=== PATIENT | female | born 1955 | race Two or more races ===

== ENCOUNTER → 2016-06-26 | Outpatient (CLI) | payer OTHER, MEDICARE ==
--- NOTE | 2016-06-26 13:36 | KCIC ---
PROCEDURE Pelvic ultrasound. HISTORY Abnormal gynecologic exam. TECHNIQUE Transabdominal imaging was performed. Transvaginal imaging also was performed to better evaluate the adnexa. COMPARISON None available. FINDINGS There is a hyperechoic potentially solid mass in the right adnexa measuring 9.4 x 6.8 x 5.5 centimeters in size, may have some associated color flow. This appears separate from the right ovary. The uterus is not confidently visualized, unclear if this is separate from the uterus. In addition, there is a large cystic lesion with internal echoes and increased through transmission measuring up to 20 x 14 x 12 centimeters in size within the pelvis. This appears separate from the right ovary. The uterus is not confidently visualized. The left ovary is not confluent visualized. There is no free pelvic fluid. IMPRESSION 1. Potential solid mass in the right adnexa measuring up to 9.4 centimeters in size, unclear if this arises from the uterus. Recommend pelvic MRI with and without contrast for further evaluation. 2. Complex cystic lesion in the pelvis up to 20 centimeters in size, not clear from what structure this originates. This can also be further evaluated by MRI. If the patient cannot undergo MRI, CT with IV and oral contrast can be considered. Cystic malignancy is not excluded. Hydrometrocolpos with thinned myometrium is an additional consideration given nonvisualized uterus and report of abnormal gynecologic exam. Electronically signed by: Toni Marley MD (Jun 26, 2016 13:33:13)
== END | disposition home or self-care (01) ==
LOC: KCIC US 10:40
PROVIDERS: ATTEND Family Medicine
DX: D25.9 Leiomyoma of uterus, unspecified (principal)
CPT/HCPCS: 76830; 76856

== ENCOUNTER → 2016-07-06 | Outpatient (CLI) | payer OTHER, MEDICARE ==
[~2016-07-06] MED LIST: ATOR20TA58 PO; DAPA10TA PO; FLUT10SP NS; GADOBUTROL 10 MMOL/10 ML VIAL IV ONE; LOSA50TA6 PO
--- NOTE | 2016-07-06 13:49 | KCIC ---
PROCEDURE MRI of the pelvis with and without contrast. HISTORY Pelvic mass on prior studies. TECHNIQUE MRI of the pelvis was performed before and after the intravenous administration of 9 milliliters Gadavist. COMPARISON 06/26/2016. FINDINGS There is a cystic mass occupying the majority of the true pelvis extending superiorly to the umbilicus. It measures 18.4 x 14.5 x 12.9 centimeters. No solid composed is identified. Small follicles may be compressed along its periphery. No clear internal enhancement is seen. It likely arises from the left ovary which is not otherwise identified. The uterus is displaced into the right aspect of the false pelvis. A contains multiple solid heterogeneous masses consistent with fibroids. The largest 7.1 x 6.1 centimeters. Others measure up to 2.9 centimeters. The endometrial stripe is distorted but not clearly thickened. The right ovary is in the right hemipelvis. A contains multiple follicles. The largest measures 3.0 x 1.9 centimeters. There is a small amount of free pelvic fluid. No enlarged lymph nodes are seen. The bladder is compressed. There is degeneration of the superior acetabular labrums. There multiple small paralabral cysts that measure up to 5 millimeters. Degenerative disc disease is mild to moderate at L5-S1. There is an anterior central extrusion at L5-S1 measuring 4 millimeters. IMPRESSION - 18 centimeter cystic mass in the pelvis, likely arising from the left ovary. There is no clear solid component, but an ovarian neoplasm is the primary concern in this demographic. Ongoing gynecologic management is recommended. - The uterus is displaced superiorly and to the right. A contained multiple fibroids that measure up to 7 centimeters. - Right ovarian follicles measure up to 3 centimeters. This can also be followed sonographically to resolution. - Moderate inferior disc extrusion at L5-S1. - Bilateral degenerative acetabular labral tears with multiple small paralabral cysts. Electronically signed by: Chet Paul (Jul 06, 2016 13:48:13)
== END | disposition home or self-care (01) ==
LOC: KCIC MRI 10:45
PROVIDERS: ATTEND Family Medicine
DX: D25.9 Leiomyoma of uterus, unspecified (principal); N83.9 Noninflammatory disorder of ovary, fallopian tube and broad ligament, unspecified
CPT/HCPCS: 72197; 82565; A9585

== ENCOUNTER → 2016-07-26 | Outpatient (CLI) | payer MEDICARE, OTHER ==
[~2016-07-26] MED LIST changes: -GADOBUTROL 10 MMOL/10 ML VIAL IV ONE
--- NOTE | 2016-07-26 12:24 | KCIC ---
PROCEDURE Two-view chest. HISTORY Preoperative. Abnormal EKG. COMPARISON No comparison. FINDINGS Mildly tortuous thoracic aorta. Cardiac size normal. Lungs are clear. No pleural effusion or pneumothorax. No acute bone abnormality. IMPRESSION No acute cardiopulmonary process. Electronically signed by: Lance Camarena MD (Jul 26, 2016 12:23:17)
== END | disposition home or self-care (01) ==
LOC: KCIC 11:01
PROVIDERS: ATTEND Family Medicine
DX: Z01.811 Encounter for preprocedural respiratory examination (principal); R94.31 Abnormal electrocardiogram [ECG] [EKG]; I71.2 Thoracic aortic aneurysm, without rupture
CPT/HCPCS: 71020

== ENCOUNTER → 2016-07-27 | Outpatient (CLI) | payer MEDICARE, OTHER ==
[~2016-07-27] MED LIST changes: +REGADENOSON 0.4 MG/5 ML DISP.SYRIN. IV ONE
--- NOTE | 2016-07-27 11:05 | RAD ---
APPROVED REPORT Test Type: Pharmacological Stress Nurse/Tech: Samira Shelley R.N. Test Indications: pre-op Cardiac History: htn,smoker Medications: See Electronic Medical Record Medical History: See Electronic Medical Record Resting ECG: SR Resting Heart Rate: 78 bpm Resting Blood Pressure: 153/76mmHg Pretest Chest Pain: No chest pain Nurse/Tech Notes S1S2, lungs CTA Consent: The procedure was explained to the patient in lay terms. Informed consent was witnessed. Inck eout was entered into [facility]. History and Stress Test performed by DAQUAN Kimbrough, JASIEL (R) (N) Pharm. Details Pharmacologic stress testing was performed using 0.4mg per 5ml of regadenoson given intravenously ove r 7-10 seconds. Stress Symptoms Nausea which ended before the end of recovery period POST EXERCISE Reason for Termination: Infusion complete Max HR: 100 bpm Max Blood Pressure: 164/59mmHg Blood Pressure response to exercise: Normal blood pressure response during stress. Heart Rate response to exercise: wnl Chest Pain: No. Arrhythmia: No. ST Change: No. INTERPRETATION Stress EKG Conclusion: Baseline EKG showed sinus rhythm. No ischemic changes at peak stress. No arr hythmias. Imaging Protocol IMAGE PROTOCOL: Rest Tc-99m/stress Tc-99m 1 day Rest: Stress: Viability: Radiopharm.Tc99m [id number] Sestamibi Dose10.1mCi 34.9mCi Duration 15min. 10min. Img Date 07/27/2016 07/27/2016 Inj-Img Umls58otg. 60min. Rest Admin Site:IV - Left ForearmAdministrator:MARTA Bach Stress Admin Site: IV - Left ForearmAdministrator: DAQUAN Kimbrough, JASIEL (R)(N) STRESS DATA End Diast. Vol.81.0mlAv. Heart Rate87.0bpm End Syst. Vol.9.0mlCO Index BSA0.0L/min Myocardial Snmf330.0gEject. Fotpscgd05.0% Stress Rates Pk. Fill Rate2.52EDV/secLVtime Pk. Fill 167.89msec Pk. Empty Rate4.63ESV/secLVtime Pk. Fvmmm978.80msec 1/3 Pk. Fill1.38EDV/sec Stress Scores Regional WT0.00Summed WT0.00 Regional WM0.00Summed WM0.00 Study quality was good. Left Ventricular size was Normal at Rest and Stress. Lung uptake was Normal. Left Ventricular ejection fraction is 89%. The rest and stress images show normal perfusion, normal contraction and thickening. LV Perf. Quant 17 Seg. SSS0.00 17 Seg. SRS0.00 17 Seg. SDS0.00 Stress Defect Extent (% LAD)0.00Rest Defect Extent (% LAD)0.00Rev. Defect Extent (% LAD)0.00 Stress Defect Extent (% LCX) 0.00Rest Defect Extent (% LCX)0.00Rev. Defect Extent (% LCX)0.00 Stress Defect Extent (% RCA)0.00Rest Defect Extent (% RCA)0.00Rev. Defect Extent (% RCA)0.00 Stress Defect Extent (% SHARRON)0.00Rest Defect Extent (% SHARRON)0.00Rev. Defect Extent (% SHARRON)0.00 Conclusion 1. Regadenoson cardioisotope stress test did not show any evidence of ischemia or infarct. 2. Normal left ventricular systolic function with ejection fraction calculated at 89%. 3. Low risk for cardiac events.
== END | disposition home or self-care (01) ==
LOC: NM 06:42
PROVIDERS: ATTEND Internal Medicine Cardiovascular Disease
DX: Z01.818 Encounter for other preprocedural examination (principal); I10 Essential (primary) hypertension; F17.200 Nicotine dependence, unspecified, uncomplicated
CPT/HCPCS: 78452; 93017; 96374; 96375; 96376; A9500; J2785

== ENCOUNTER → 2018-04-16 | Outpatient (CLI) | payer MEDICARE, OTHER ==
[~2018-04-16] MED LIST changes: -LOSA50TA6 PO; +LOSA50TA7 PO; -REGADENOSON 0.4 MG/5 ML DISP.SYRIN. IV ONE
--- NOTE | 2018-04-16 16:10 | RAD ---
DATE: 04/16/2018 EXAM: MAMMO ANAYELI SCREENING BILATERAL HISTORY: Routine screening COMPARISON: Prior exams are performed more than 15 years ago and are not available. This study was interpreted with the benefit of Computerized Aided Detection (CAD). Breast Density: SCATTERED The breast parenchyma shows scattered fibroglandular densities. Breast parenchyma level B. FINDINGS: Benign calcifications present. No suspicious calcification cluster or distortion. No mass lesions. IMPRESSION: Normal BI-RADS CATEGORY: 2 BENIGN FINDING(S) RECOMMENDED FOLLOW-UP: 12M 12 MONTH FOLLOW-UP PQRS compliance statement: Patient information was entered into a reminder system with a target due date in one year for the next mammogram. Mammography is a sensitive method for finding small breast cancers, but it does not detect them all and is not a substitute for careful clinical examination. A negative mammogram does not negate a clinically suspicious finding and should not result in delay in biopsying a clinically suspicious abnormality. "Our facility is accredited by the [employer] Mammography Program."
== END | disposition home or self-care (01) ==
LOC: MAMMO 13:34
PROVIDERS: ATTEND Family Medicine
DX: Z12.31 Encounter for screening mammogram for malignant neoplasm of breast (principal)
CPT/HCPCS: 77063; 77067

== ENCOUNTER → 2018-07-30 | Outpatient (CLI) | payer MEDICARE, OTHER ==
[~2018-07-30] MED LIST changes: +LOSA-73 PO; -LOSA50TA7 PO
--- NOTE | 2018-07-31 09:46 | SLEEP ---
DATE OF STUDY: 07/30/2018 ATTENDING PHYSICIAN: Dr. Shimon Dela Cruz. The patient is a 63-year-old who weighs 198 pounds with a BMI of 34. The patient's Lawrence score was 10. The patient underwent diagnostic sleep study at [facility]. During the night study, the patient spent 424 minutes in bed and slept for 253 minutes with a sleep efficiency of 60%. Sleep latency was 100 minutes with a REM latency of 293 minutes. Overall sleep architecture showed normal stage 1 and stage 2 sleep, increased slow wave sleep and reduced REM sleep. During the night study, the patient had 1 obstructive apnea, 1 mixed apnea and 3 central apneas and 33 hypopneas. The patient's apnea-hypopnea index was 9 per hour, supine index 12 per hour and REM index of 9 per hour. EKG monitoring revealed a mean heart rate of 83 beats per minute, no sustained arrhythmias were observed. Nocturnal oximetry study revealed an average oxygen saturation of 98% with the lowest of 90%. PLMS were seen at index of 97 per hour and 12 per hour caused EEG arousals. Due to low AHI, the patient did not meet the split night criteria for CPAP initiation. IMPRESSION: 1. Mild sleep apnea-hypopnea syndrome at an apnea-hypopnea index of 9 per hour. 2. No clinically significant nocturnal hypoxia. 3. Severe periodic limb movements of sleep. RECOMMENDATIONS: 1. The patient is clinically symptomatic with an Lawrence score of 10. I would recommend treating the patient's sleep apnea with either oral appliance or a trial of CPAP titration. 2. Weight loss is strongly advised. This will certainly help improving the patient's sleep apnea. 3. Avoid TELEVISION ANALYZER depressants. 4. PLMS can be treated with dopaminergic agonist agents if the patient is clinically symptomatic. The patient should also be further evaluated for symptoms of restless legs during the day. OMA BROTHERS MD DR: GURINDER/liza JOB#: [id number] / [id number] SHIMON Carlton MD
== END | disposition home or self-care (01) ==
LOC: SLPLAB 19:12
PROVIDERS: ATTEND Family Medicine
DX: G47.33 Obstructive sleep apnea (adult) (pediatric) (principal); G47.61 Periodic limb movement disorder
CPT/HCPCS: 95810

== ENCOUNTER → 2018-09-01 | Outpatient (CLI) | payer MEDICARE, OTHER ==
[~2018-09-01] MED LIST changes: +OXYMETAZOLINE 0.05% NASAL SPRAY 30ML BOTTLE. NS ONE
--- NOTE | 2018-09-02 14:51 | SLEEP ---
DATE OF STUDY: 09/01/2018 SLEEP STUDY ATTENDING PHYSICIAN: Shimon Dela Cruz MD. The patient is a 63 years old who weighs 198 pounds with a BMI of 34. The patient's [place]on score was 10. The patient had previous sleep study and was found to have mild SUSAN at an AHI of 9 per hour. The patient was clinically symptomatic with an [place] score of 10. As a result, the patient was referred back for treatment of sleep apnea and performed at [facility]. During the night study, the patient spent 415 minutes in bed and slept for 282 minutes with a sleep efficiency of 68%. Sleep latency was 113 minutes with a REM latency of 167 minutes. Overall, sleep architecture showed normal stage 1 sleep, increased stage 2 sleep, increased N3 sleep and reduced REM sleep. EKG monitoring revealed normal sinus rhythm, average heart rate 69 beats per minute, no sustained arrhythmias observed. PLMS were seen at index of 22 per hour and 6 per hour caused EEG arousals. The patient was started on CPAP at 5 cm water and titrated up to 7 cm water. At the final pressure, the patient slept for 270 minutes. The patient had supine sleep as well as REM sleep. The patient's AHI was reduced to 1 per hour and oxygen saturation remained above 88%. The patient used small size nasal cushion. IMPRESSION: 1. Sleep apnea diagnosed by previous sleep study. 2. Moderate PLMS at an index of 22 per hour and 6 per hour caused EEG arousals. RECOMMENDATIONS: 1. CPAP at 7 cm water completely eliminated the patient's sleep apnea, should be used on a nightly basis. 2. Follow up in 4-6 weeks to assess compliance and to document clinical improvement with CPAP. 3. Weight loss is advised. 4. Avoid DRUM SAW OPERATOR depressants. 5. Caution regarding driving until symptoms of sleep apnea resolve with the use of CPAP. 6. PLMS does not need to be treated unless the patient has symptoms of restless legs during the day. OMA BROTHERS MD DR: GURINDER/liza JOB#: [id number] / [id number] SHIMON Carlton MD
== END | disposition home or self-care (01) ==
LOC: RT 09:54
PROVIDERS: ATTEND Family Medicine
DX: G47.33 Obstructive sleep apnea (adult) (pediatric) (principal); G47.61 Periodic limb movement disorder
CPT/HCPCS: 95811

== ENCOUNTER → 2020-12-08 | Outpatient (CLI) | payer MEDICARE, OTHER ==
[~2020-12-08] MED LIST changes: -OXYMETAZOLINE 0.05% NASAL SPRAY 30ML BOTTLE. NS ONE
[2020-12-08 10:35] LABS: BASO # 0.1 x10^3/uL (0.0-0.2); BASO % 1 % (0-3); EOS # 0.3 x10^3/uL (0.0-0.7); EOS % 2 % (0-3); HEMATOCRIT 45.3 % (36.0-47.0); HEMOGLOBIN 14.9 g/dL (12.0-15.5); LYMPH # 1.8 x10^3/uL (1.0-4.8); LYMPH % 14 % (24-48); MEAN CORPUSCULAR HEMOGLOBIN 27 pg (25-35); MEAN CORPUSCULAR HGB CONC 33 g/dL (31-37); MEAN CORPUSCULAR VOLUME 82 fL (79-100); MONO # 0.8 x10^3/uL (0.0-1.1); MONO % 6 % (0-9); NEUT # 10.1 x10^3/uL (1.8-7.7); NEUT % 78 % (31-73); PLATELET COUNT 807 x10^3/uL (140-400); RED BLOOD COUNT 5.54 x10^6/uL (3.50-5.40); RED CELL DISTRIBUTION WIDTH 15.1 % (11.5-14.5)
[2020-12-08 11:16] LABS: CALCIUM 9.7 mg/dL (8.5-10.1); CREATININE 0.6 mg/dL (0.6-1.0); GFR 100.6; POTASSIUM 4.1 mmol/L (3.5-5.1)
[2020-12-08 11:33] LABS: ALBUMIN 4.6 g/dL (3.4-5.0); ALBUMIN/GLOBULIN RATIO 1.2 (1.0-1.7); TOTAL BILIRUBIN 0.4 mg/dL (0.2-1.0); TOTAL PROTEIN 8.3 g/dL (6.4-8.2)
== END ==
LOC: ONCLAB 10:03
PROVIDERS: ATTEND Physician Assistant
DX: D47.3 Essential (hemorrhagic) thrombocythemia (principal)
CPT/HCPCS: 36415; 80053; 82607; 82668; 82728; 82746; 83540; 83550; 85025

== ENCOUNTER → 2020-12-30 | Outpatient (CLI) | payer MEDICARE, OTHER ==
[2020-12-30 09:42] LABS: BASO # 0.2 x10^3/uL (0.0-0.2); BASO % 1 % (0-3); EOS # 0.3 x10^3/uL (0.0-0.7); EOS % 2 % (0-3); HEMATOCRIT 42.6 % (36.0-47.0); HEMOGLOBIN 14.1 g/dL (12.0-15.5); LYMPH # 2.1 x10^3/uL (1.0-4.8); LYMPH % 15 % (24-48); MEAN CORPUSCULAR HEMOGLOBIN 27 pg (25-35); MEAN CORPUSCULAR HGB CONC 33 g/dL (31-37); MEAN CORPUSCULAR VOLUME 82 fL (79-100); MONO % 7 % (0-9); NEUT # 10.3 x10^3/uL (1.8-7.7); NEUT % 75 % (31-73); PLATELET COUNT 744 x10^3/uL (140-400); RED BLOOD COUNT 5.19 x10^6/uL (3.50-5.40); RED CELL DISTRIBUTION WIDTH 15.1 % (11.5-14.5); WHITE BLOOD COUNT 13.8 x10^3/uL (4.0-11.0)
[2020-12-30 09:52] LABS: CALCIUM 9.3 mg/dL (8.5-10.1); CREATININE 0.6 mg/dL (0.6-1.0); GFR 100.6; POTASSIUM 3.9 mmol/L (3.5-5.1)
[2020-12-30 09:57] LABS: ALBUMIN 3.9 g/dL (3.4-5.0); TOTAL BILIRUBIN 0.4 mg/dL (0.2-1.0); TOTAL PROTEIN 7.9 g/dL (6.4-8.2)
== END ==
LOC: ONCLAB 09:22
PROVIDERS: ATTEND Internal Medicine Hematology & Oncology
DX: D47.3 Essential (hemorrhagic) thrombocythemia (principal)
CPT/HCPCS: 36415; 80053; 85025

== ENCOUNTER → 2021-01-13 | Outpatient (CLI) | payer MEDICARE, OTHER ==
[2021-01-13 15:08] LABS: BASO # 0.1 x10^3/uL (0.0-0.2); BASO % 1 % (0-3); EOS # 0.3 x10^3/uL (0.0-0.7); EOS % 2 % (0-3); HEMATOCRIT 40.9 % (36.0-47.0); HEMOGLOBIN 13.7 g/dL (12.0-15.5); LYMPH # 2.1 x10^3/uL (1.0-4.8); LYMPH % 17 % (24-48); MEAN CORPUSCULAR HEMOGLOBIN 27 pg (25-35); MEAN CORPUSCULAR HGB CONC 33 g/dL (31-37); MEAN CORPUSCULAR VOLUME 82 fL (79-100); MONO # 0.7 x10^3/uL (0.0-1.1); MONO % 6 % (0-9); NEUT % 74 % (31-73); PLATELET COUNT 620 x10^3/uL (140-400); RED BLOOD COUNT 4.98 x10^6/uL (3.50-5.40); RED CELL DISTRIBUTION WIDTH 15.5 % (11.5-14.5); WHITE BLOOD COUNT 12.2 x10^3/uL (4.0-11.0)
[2021-01-13 15:22] LABS: CALCIUM 9.4 mg/dL (8.5-10.1); CREATININE 0.7 mg/dL (0.6-1.0); GFR 84.2; POTASSIUM 3.8 mmol/L (3.5-5.1)
[2021-01-13 15:40] LABS: ALBUMIN 3.7 g/dL (3.4-5.0); TOTAL BILIRUBIN 0.4 mg/dL (0.2-1.0); TOTAL PROTEIN 7.5 g/dL (6.4-8.2)
== END ==
LOC: ONCLAB 14:02
PROVIDERS: ATTEND Physician Assistant
DX: D47.3 Essential (hemorrhagic) thrombocythemia (principal)
CPT/HCPCS: 36415; 80053; 82607; 82668; 82728; 82746; 83540; 83550; 85025

== ENCOUNTER → 2021-02-10 | Outpatient (CLI) | payer MEDICARE, OTHER ==
[2021-02-10 10:08] LABS: BASO # 0.1 x10^3/uL (0.0-0.2); BASO % 1 % (0-3); EOS # 0.2 x10^3/uL (0.0-0.7); EOS % 1 % (0-3); HEMATOCRIT 40.3 % (36.0-47.0); HEMOGLOBIN 13.4 g/dL (12.0-15.5); LYMPH # 1.8 x10^3/uL (1.0-4.8); LYMPH % 16 % (24-48); MEAN CORPUSCULAR HEMOGLOBIN 28 pg (25-35); MEAN CORPUSCULAR HGB CONC 33 g/dL (31-37); MEAN CORPUSCULAR VOLUME 84 fL (79-100); MONO # 0.8 x10^3/uL (0.0-1.1); MONO % 7 % (0-9); NEUT # 8.7 x10^3/uL (1.8-7.7); NEUT % 75 % (31-73); PLATELET COUNT 597 x10^3/uL (140-400); RED BLOOD COUNT 4.82 x10^6/uL (3.50-5.40); RED CELL DISTRIBUTION WIDTH 16.7 % (11.5-14.5); WHITE BLOOD COUNT 11.7 x10^3/uL (4.0-11.0)
[2021-02-10 10:19] LABS: CALCIUM 9.4 mg/dL (8.5-10.1); CREATININE 0.6 mg/dL (0.6-1.0); GFR 100.6; POTASSIUM 4.2 mmol/L (3.5-5.1)
== END ==
LOC: ONCLAB 09:49
PROVIDERS: ATTEND Physician Assistant
DX: D47.3 Essential (hemorrhagic) thrombocythemia (principal)
CPT/HCPCS: 36415; 80048; 85025

== ENCOUNTER → 2021-03-13 | Outpatient (CLI) | payer MEDICARE, OTHER ==
[2021-03-13 14:25] LABS: BASO # 0.1 x10^3/uL (0.0-0.2); BASO % 1 % (0-3); EOS # 0.1 x10^3/uL (0.0-0.7); EOS % 1 % (0-3); HEMATOCRIT 42.8 % (36.0-47.0); HEMOGLOBIN 14.1 g/dL (12.0-15.5); LYMPH # 1.7 x10^3/uL (1.0-4.8); LYMPH % 18 % (24-48); MEAN CORPUSCULAR HEMOGLOBIN 28 pg (25-35); MEAN CORPUSCULAR HGB CONC 33 g/dL (31-37); MEAN CORPUSCULAR VOLUME 86 fL (79-100); MONO # 0.7 x10^3/uL (0.0-1.1); MONO % 7 % (0-9); NEUT % 73 % (31-73); PLATELET COUNT 530 x10^3/uL (140-400); RED BLOOD COUNT 4.98 x10^6/uL (3.50-5.40); RED CELL DISTRIBUTION WIDTH 17.1 % (11.5-14.5); WHITE BLOOD COUNT 9.7 x10^3/uL (4.0-11.0)
[2021-03-13 14:32] LABS: CALCIUM 9.6 mg/dL (8.5-10.1); CREATININE 0.8 mg/dL (0.6-1.0)
[2021-03-13 14:40] LABS: ALBUMIN 4.1 g/dL (3.4-5.0); TOTAL BILIRUBIN 0.4 mg/dL (0.2-1.0); TOTAL PROTEIN 8.1 g/dL (6.4-8.2)
== END ==
LOC: ONCLAB 13:52
PROVIDERS: ATTEND Physician Assistant
DX: D47.3 Essential (hemorrhagic) thrombocythemia (principal)
CPT/HCPCS: 36415; 80053; 85025

== ENCOUNTER → 2021-05-08 | Outpatient (CLI) | payer MEDICARE, OTHER ==
[2021-05-08 12:40] LABS: BASO # 0.1 x10^3/uL (0.0-0.2); BASO % 1 % (0-3); EOS # 0.2 x10^3/uL (0.0-0.7); EOS % 2 % (0-3); HEMATOCRIT 44.7 % (36.0-47.0); HEMOGLOBIN 14.9 g/dL (12.0-15.5); LYMPH # 1.8 x10^3/uL (1.0-4.8); LYMPH % 16 % (24-48); MEAN CORPUSCULAR HEMOGLOBIN 30 pg (25-35); MEAN CORPUSCULAR HGB CONC 34 g/dL (31-37); MEAN CORPUSCULAR VOLUME 90 fL (79-100); MONO # 0.7 x10^3/uL (0.0-1.1); MONO % 7 % (0-9); NEUT # 8.1 x10^3/uL (1.8-7.7); NEUT % 74 % (31-73); PLATELET COUNT 530 x10^3/uL (140-400); RED BLOOD COUNT 4.95 x10^6/uL (3.50-5.40); RED CELL DISTRIBUTION WIDTH 15.7 % (11.5-14.5); WHITE BLOOD COUNT 10.9 x10^3/uL (4.0-11.0)
[2021-05-08 12:48] LABS: CALCIUM 9.3 mg/dL (8.5-10.1); CREATININE 0.7 mg/dL (0.6-1.0); POTASSIUM 3.9 mmol/L (3.5-5.1)
[2021-05-08 12:54] LABS: ALBUMIN 3.9 g/dL (3.4-5.0); TOTAL BILIRUBIN 0.4 mg/dL (0.2-1.0); TOTAL PROTEIN 7.9 g/dL (6.4-8.2)
== END ==
LOC: ONCLAB 12:11
PROVIDERS: ATTEND Physician Assistant
DX: D47.3 Essential (hemorrhagic) thrombocythemia (principal)
CPT/HCPCS: 36415; 80053; 85025

== ENCOUNTER → 2021-05-29 | Outpatient (CLI) | payer MEDICARE, OTHER ==
[2021-05-29 12:57] LABS: BASO # 0.1 x10^3/uL (0.0-0.2); BASO % 1 % (0-3); EOS # 0.1 x10^3/uL (0.0-0.7); EOS % 2 % (0-3); HEMATOCRIT 43.6 % (36.0-47.0); LYMPH # 1.7 x10^3/uL (1.0-4.8); LYMPH % 20 % (24-48); MEAN CORPUSCULAR HEMOGLOBIN 30 pg (25-35); MEAN CORPUSCULAR HGB CONC 32 g/dL (31-37); MEAN CORPUSCULAR VOLUME 92 fL (79-100); MONO # 0.7 x10^3/uL (0.0-1.1); MONO % 8 % (0-9); NEUT # 6.3 x10^3/uL (1.8-7.7); NEUT % 71 % (31-73); PLATELET COUNT 500 x10^3/uL (140-400); RED BLOOD COUNT 4.74 x10^6/uL (3.50-5.40); RED CELL DISTRIBUTION WIDTH 15.4 % (11.5-14.5); WHITE BLOOD COUNT 8.9 x10^3/uL (4.0-11.0)
[2021-05-29 13:06] LABS: CALCIUM 8.9 mg/dL (8.5-10.1); CREATININE 0.6 mg/dL (0.6-1.0); GFR 100.3; POTASSIUM 3.6 mmol/L (3.5-5.1)
[2021-05-29 13:14] LABS: ALBUMIN/GLOBULIN RATIO 0.9 (1.0-1.7); TOTAL BILIRUBIN 0.4 mg/dL (0.2-1.0); TOTAL PROTEIN 8.5 g/dL (6.4-8.2)
== END ==
LOC: ONCLAB 12:03
PROVIDERS: ATTEND Physician Assistant
DX: D47.3 Essential (hemorrhagic) thrombocythemia (principal)
CPT/HCPCS: 36415; 80053; 85025

== ENCOUNTER → 2021-06-28 | Outpatient (CLI) | payer MEDICARE, OTHER ==
[2021-06-28 09:53] LABS: BASO # 0.1 x10^3/uL (0.0-0.2); BASO % 1 % (0-3); EOS # 0.2 x10^3/uL (0.0-0.7); EOS % 2 % (0-3); HEMATOCRIT 38.9 % (36.0-47.0); LYMPH # 1.6 x10^3/uL (1.0-4.8); LYMPH % 19 % (24-48); MEAN CORPUSCULAR HEMOGLOBIN 31 pg (25-35); MEAN CORPUSCULAR HGB CONC 34 g/dL (31-37); MEAN CORPUSCULAR VOLUME 94 fL (79-100); MONO # 0.7 x10^3/uL (0.0-1.1); MONO % 8 % (0-9); NEUT # 6.1 x10^3/uL (1.8-7.7); NEUT % 70 % (31-73); PLATELET COUNT 479 x10^3/uL (140-400); RED BLOOD COUNT 4.15 x10^6/uL (3.50-5.40); RED CELL DISTRIBUTION WIDTH 15.5 % (11.5-14.5); WHITE BLOOD COUNT 8.7 x10^3/uL (4.0-11.0)
[2021-06-28 10:32] LABS: ALBUMIN 3.9 g/dL (3.4-5.0); ALBUMIN/GLOBULIN RATIO 0.9 (1.0-1.7); CALCIUM 8.9 mg/dL (8.5-10.1); CREATININE 0.6 mg/dL (0.6-1.0); GFR 100.3; POTASSIUM 3.9 mmol/L (3.5-5.1); TOTAL BILIRUBIN 0.3 mg/dL (0.2-1.0); TOTAL PROTEIN 8.3 g/dL (6.4-8.2)
== END ==
LOC: ONCLAB 09:29
PROVIDERS: ATTEND Internal Medicine Hematology & Oncology
DX: D47.3 Essential (hemorrhagic) thrombocythemia (principal)
CPT/HCPCS: 36415; 80053; 85025

== ENCOUNTER → 2021-09-01 | Outpatient (CLI) | payer MEDICARE, OTHER ==
[2021-09-01 09:44] LABS: BASO # 0.1 x10^3/uL (0.0-0.2); BASO % 1 % (0-3); EOS # 0.2 x10^3/uL (0.0-0.7); EOS % 2 % (0-3); HEMATOCRIT 37.3 % (36.0-47.0); HEMOGLOBIN 12.1 g/dL (12.0-15.5); LYMPH # 1.4 x10^3/uL (1.0-4.8); LYMPH % 18 % (24-48); MEAN CORPUSCULAR HEMOGLOBIN 31 pg (25-35); MEAN CORPUSCULAR HGB CONC 33 g/dL (31-37); MEAN CORPUSCULAR VOLUME 97 fL (79-100); MONO # 0.7 x10^3/uL (0.0-1.1); MONO % 9 % (0-9); NEUT # 5.6 x10^3/uL (1.8-7.7); NEUT % 70 % (31-73); PLATELET COUNT 405 x10^3/uL (140-400); RED BLOOD COUNT 3.86 x10^6/uL (3.50-5.40); RED CELL DISTRIBUTION WIDTH 15.5 % (11.5-14.5)
[2021-09-01 09:57] LABS: CALCIUM 9.9 mg/dL (8.5-10.1); CREATININE 0.6 mg/dL (0.6-1.0); GFR 100.3; POTASSIUM 4.2 mmol/L (3.5-5.1)
[2021-09-01 10:04] LABS: TOTAL BILIRUBIN 0.4 mg/dL (0.2-1.0)
== END ==
LOC: ONCLAB 09:25
PROVIDERS: ATTEND Internal Medicine Hematology & Oncology
DX: D47.3 Essential (hemorrhagic) thrombocythemia (principal)
CPT/HCPCS: 36415; 80053; 85025

== ENCOUNTER → 2021-10-02 | Outpatient (CLI) | payer MEDICARE, OTHER ==
[2021-10-02 11:42] LABS: CALCIUM 10.2 mg/dL (8.5-10.1); CREATININE 0.6 mg/dL (0.6-1.0); GFR 100.3; POTASSIUM 4.1 mmol/L (3.5-5.1)
[2021-10-02 11:48] LABS: BASO # 0.1 x10^3/uL (0.0-0.2); BASO % 1 % (0-3); EOS # 0.2 x10^3/uL (0.0-0.7); EOS % 2 % (0-3); HEMATOCRIT 38.5 % (36.0-47.0); LYMPH # 1.8 x10^3/uL (1.0-4.8); LYMPH % 20 % (24-48); MEAN CORPUSCULAR HEMOGLOBIN 34 pg (25-35); MEAN CORPUSCULAR HGB CONC 34 g/dL (31-37); MEAN CORPUSCULAR VOLUME 99 fL (79-100); MONO # 0.6 x10^3/uL (0.0-1.1); MONO % 7 % (0-9); NEUT # 6.6 x10^3/uL (1.8-7.7); NEUT % 71 % (31-73); PLATELET COUNT 414 x10^3/uL (140-400); RED BLOOD COUNT 3.88 x10^6/uL (3.50-5.40); RED CELL DISTRIBUTION WIDTH 14.7 % (11.5-14.5); WHITE BLOOD COUNT 9.3 x10^3/uL (4.0-11.0)
[2021-10-02 11:49] LABS: ALBUMIN 4.2 g/dL (3.4-5.0); ALBUMIN/GLOBULIN RATIO 0.9 (1.0-1.7); TOTAL BILIRUBIN 0.4 mg/dL (0.2-1.0); TOTAL PROTEIN 8.7 g/dL (6.4-8.2)
== END ==
LOC: ONCLAB 10:18
PROVIDERS: ATTEND Internal Medicine Hematology & Oncology
DX: D47.3 Essential (hemorrhagic) thrombocythemia (principal)
CPT/HCPCS: 36415; 80053; 85025